=== PATIENT | male | born 1995 | race Caucasian/White ===

== ENCOUNTER 2018-11-07 02:10 | Emergency (ER) | payer MEDICAID ==
[~2018-11-07] VITALS: Ht 177.8 cm; Wt 72.7 kg
[2018-11-07] MEDS ORDERED: PB/HYOSCY/ATR/SCOP/LIDO/MAALOX 55 ML BOTTLE PO ONE (03:15)
[2018-11-07 04:09] LABS: AMPHET/METH SCREEN,URINE POSITIVE (NEGATIVE); BARBITURATE SCREEN, URINE NEGATIVE (NEGATIVE); BENZODIAZEPINES SCREEN,URINE NEGATIVE (NEGATIVE); CANNABINOID SCREEN,URINE POSITIVE (NEGATIVE); COCAINE SCREEN,URINE NEGATIVE (NEGATIVE); METHADONE SCREEN, URINE NEGATIVE (NEGATIVE); OPIATE SCREEN,URINE NEGATIVE (NEGATIVE)
[2018-11-07 04:15] LABS: PHENCYCLIDINE SCREEN,URINE NEGATIVE (NEGATIVE)
[2018-11-07 04:30] VITALS: BP 112/77
== END 2018-11-07 05:08 | disposition home or self-care (01) ==
LOC: EMS 02:11
DX: K21.9 Gastro-esophageal reflux disease without esophagitis (principal); F15.90 Other stimulant use, unspecified, uncomplicated; F17.210 Nicotine dependence, cigarettes, uncomplicated; F12.90 Cannabis use, unspecified, uncomplicated
CPT/HCPCS: 36415; 80307; 99283; G0480

== ENCOUNTER 2025-05-24 17:38 | Emergency (ER) | payer MEDICAID, OTHER ==
[~2025-05-24] VITALS: Ht 177.8 cm; Wt 73.0 kg
[2025-05-24 17:54] VITALS: BP 120/75; PULSE 72; RESP 18; TEMP 98.2; O2SAT 98
[2025-05-24] MEDS: ACETAMINOPHEN 500 MG TABLET PO ONE (18:17)
[2025-05-24] MEDS: IBUPROFEN 600 MG TABLET PO ONE (18:17)
[2025-05-24] MEDS: ONDANSETRON 4 MG TABLET PO ONE (18:17)
== END 2025-05-24 20:05 ==
LOC: EMS 17:38
DX: S00.03XA Contusion of scalp, initial encounter (principal); S20.219A Contusion of unspecified front wall of thorax, initial encounter; F31.9 Bipolar disorder, unspecified; F15.90 Other stimulant use, unspecified, uncomplicated; F12.90 Cannabis use, unspecified, uncomplicated; Z90.49 Acquired absence of other specified parts of digestive tract; V89.2XXA Person injured in unspecified motor-vehicle accident, traffic, initial encounter; Y93.89 Activity, other specified; Y92.89 Other specified places as the place of occurrence of the external cause; Y99.8 Other external cause status
CPT/HCPCS: 99284; 70450; 71045; 73030; Q0162